=== PATIENT | male | born 1970 | race African-American/Black ===

== ENCOUNTER 2018-08-21 10:14 | Emergency (ER) | payer OTHER ==
[~2018-08-21] VITALS: Ht 182.9 cm; Wt 106.1 kg
[2018-08-21] MEDS ORDERED: SODIUM CHLORIDE FLUSH 10ML SYR IVF ONE (11:00)
[2018-08-21] MEDS ORDERED: AMPICILLIN/SULBACTAM 3 GM in SODIUM CHLORIDE 0.9% 100 ML IV ONE (11:00)
[2018-08-21] MEDS ORDERED: LABETALOL 20 MG/4 ML ONE (11:21)
[2018-08-21] MEDS ORDERED: LABETALOL 5MG/ML, 20ML IVPush ONE (11:30)
[2018-08-21 11:42] VITALS: BP 165/98
== END 2018-08-21 12:18 | disposition home or self-care (01) ==
LOC: ED 12:00
DX: S00.07XA Other superficial bite of scalp, initial encounter (principal); I10 Essential (primary) hypertension; W50.3XXA Accidental bite by another person, initial encounter; Y93.89 Activity, other specified; Y92.89 Other specified places as the place of occurrence of the external cause; Y99.8 Other external cause status
CPT/HCPCS: 96365; 96375; 99283; J0295